=== PATIENT | male | born 1985 | race African-American/Black ===

== ENCOUNTER 2021-12-08 18:33 | Emergency (ER) | payer MEDICAID, OTHER ==
[~2021-12-08] VITALS: Ht 188 cm; Wt 146.0 kg
[2021-12-08 18:49] VITALS: BP 154/88
== END 2021-12-09 03:00 | disposition left against medical advice (07) ==
LOC: ER 18:40
DX: Z53.21 Procedure and treatment not carried out due to patient leaving prior to being seen by health care provider (principal)
CPT/HCPCS: 73140